=== PATIENT | male | born 1975 | race Hispanic/Latino ===

== ENCOUNTER 2020-05-19 21:30 | Inpatient (IN) | payer SELFPAY ==
[~2020-05-19] VITALS: Ht 165.1 cm; Wt 64.0 kg
--- NOTE | 2020-05-19 21:33 | NUR ---
BY EMS TO ROOM
[2020-05-19 22:12] LABS: HEMATOCRIT 28.3 % (39.0-50.0); HEMOGLOBIN 9.8 g/dl (14.0-18.0); IMMATURE GRANULOCYTES 0.8 % (0.0-5.0); MEAN CELL VOLUME 75.9 fL CALC (80.0-100.0); MEAN CORPUSCULAR HGB 26.3 pG CALC (26.0-32.0); MEAN CORPUSCULAR HGB CONC 34.6 g/dL CAL (32.0-36.0); NEUT# 7.97 thou/uL (1.82-7.42); RED BLOOD COUNT 3.73 mill/uL (4.70-6.10); RED CELL DISTRI WIDTH 13.2 % (11.5-15.5)
[2020-05-19 22:28] LABS: ALBUMIN 3.4 g/dL (3.2-5.0); ALKALINE PHOSPHATASE 204 u/l (38-126); ANION GAP 13 (6-22 (CALC)); BILIRUBIN, TOTAL 0.9 mg/dL (0.0-1.4); BUN 23 mg/dL (9-20); BUN/CREATININE RATIO 20 (12-20 (CALC)); CARBON DIOXIDE 17 mmol/l (22-30); CHLORIDE 93 mmol/l (95-108); CREATININE 1.2 mg/dL (0.7-1.3); GFR > 60 ML/MIN (>=60 (CALC)); GFR FOR AFR.AMER. > 60 ML/MIN (>=60 (CALC)); POTASSIUM 2.8 mmol/l (3.5-5.1); SGOT/AST 117 u/l (17-59); SODIUM 121 mmol/l (137-146); TOTAL PROTEIN 8.7 g/dL (6.3-8.2)
--- NOTE | 2020-05-19 22:30 | NUR ---
RESTING QUIETLY. NAD.
[2020-05-19 22:39] LABS: MYOGLOBIN 137 ng/mL (0 - 121)
--- NOTE | 2020-05-19 23:30 | NUR ---
NO CHANGE IN EXAM. APPEARS COMFORTABLE.
[2020-05-20] VITALS (13 sets, daily range): BP systolic 93–149; BP diastolic 62–98
--- NOTE | 2020-05-20 00:30 | NUR ---
RESTING QUIETLY. VSS.
--- NOTE | 2020-05-20 01:30 | NUR ---
Admission Note Report Given to: NISHA ELLIS Transported by: Wheelchair X Stretcher Transported with: X Nurse Transporter X Patent IV O2 X Primary Care Nurse Practitioner Location: ICU X MS2
--- NOTE | 2020-05-20 01:35 | NUR ---
PT RECEIVED FROM ED TO ROOM 285. ARRIVES VIA STRETCHER ACCOMPANIED BY FOREIGN PARIKH. PT TRANSFERED TO BED. GAIT UNSTEADY. PT IS HONDURAN SPEAKING. PT IS LETHARGIC. PT WAS ONLY ABLE TO ANSWER A FEW QUESTION WITH THE ED COIL MAKER. ORIENTED TO UNIT, ROOM, CALL CANCHOLA, LIGHTS, TV. ICE WATER PROVIDED. CALL CANCHOLA WITHIN REACH.
--- NOTE | 2020-05-20 03:13 | NUR ---
PT RECEIVED FROM ED TO ROOM 285. ARRIVES VIA STRETCHER ACCOMPANIED BY FOREIGN PARIKH. PT TRANSFERED TO BED. GAIT UNSTEADY. PT IS MALTESE SPEAKING. PT IS LETHARGIC. PT WAS ONLY ABLE TO ANSWER A FEW QUESTION WITH THE ED SQUARE SHEAR OPERATOR. ORIENTED TO UNIT, ROOM, CALL CANCHOLA, LIGHTS, TV. ICE WATER PROVIDED. CALL CANCHOLA WITHIN REACH.
--- NOTE | 2020-05-20 03:18 | NUR ---
PT RECEIVED FROM ED TO ROOM 285. ARRIVES VIA STRETCHER ACCOMPANIED BY FOREIGN PARIKH. PT TRANSFERED TO BED. GAIT UNSTEADY. PT IS SAUDI ARABIAN SPEAKING. PT IS LETHARGIC. PT WAS ONLY ABLE TO ANSWER A FEW QUESTION WITH THE ED TOW DRIVER. ORIENTED TO UNIT, ROOM, CALL CANCHOLA, LIGHTS, TV. ICE WATER PROVIDED. CALL CANCHOLA WITHIN REACH.
--- NOTE | 2020-05-20 04:05 | NUR ---
ER DR. MONSON CALLED AND REQUESTED STAT EKG DUE TO POSSIBLE ST ELEVATION NOTED ON LAST EKG. EKG DONE AND POSITIVE RESULTS. EKG FAXED TO DR. MONSON AND DR SHEA AND OK TO TRANSFER PT FOR POSSIBLE STEMI IN LEFT INFARCT WITH ST ELEVATION. TIPPLE MECHANIC NOTED AND STARTING PROCESS OF TRANSFER. STAT TROPONIN DRAWN AND AWAITING RESULTS.
--- NOTE | 2020-05-20 04:18 | NUR ---
DR. SHEA RETURNED CALL AND STATED TO SEND EKG RESULTS TO TRANSFER CENTER AND FOLLOW UP WITH ORNAMENTAL IRON WORKER APPRENTICE CARDIOLOGY. ALUMINUM BOAT INSPECTOR MADE CALL TO TRANSFER CENTER AT 0410 AND SPOKE WITH RICARDA AND SHE STATED SHE WILL CALL BACK WITH CONTACT NUMBERS.
--- NOTE | 2020-05-20 04:29 | NUR ---
[facility] WAS NOTIFIED AND EKG RESULTS SENT AND AWAITING RESPONSE.
--- NOTE | 2020-05-20 04:30 | NUR ---
[facility] table games dealer Dr. Fermin stated EKG changes were subtle and considering patient asymptomatic, would not recommend transfer at this time. Dr. Lassiter so notified. Orders received for repeat EKG and troponins.
--- NOTE | 2020-05-20 04:31 | NUR ---
DR. SHEA MADE AWARE OF STAT TROPONIN RESULT OF 0.012.
[2020-05-20 05:27] LABS: BUN 24 mg/dL (9-20); BUN/CREATININE RATIO 25 (12-20 (CALC)); CHLORIDE 104 mmol/l (95-108); GFR > 60 ML/MIN (>=60 (CALC)); GFR FOR AFR.AMER. > 60 ML/MIN (>=60 (CALC)); POTASSIUM 3.3 mmol/l (3.5-5.1); SODIUM 126 mmol/l (137-146)
[2020-05-20 05:28] LABS: ANION GAP 13 (6-22 (CALC)); CARBON DIOXIDE 12 mmol/l (22-30)
--- NOTE | 2020-05-20 08:00 | NUR ---
REPORT RECEIVED FROM NISHA ELLIS. PT RESTING IN BED SEMI FOWLERS WITH EYES OPEN LOOKING TO THE LEFT; DOES NOT REPLY VERBALLY TO QUESTIONS, BUT FOLLOWS COMMANDS TO LOOK AT NURSE AND OPEN MOUTH; DOES NOT MAKE EYE CONTACT. SHAKES HEAD TO YES/NO QUESTIONS. WHEN ASKED IF HE IS CHANA JENY HE SHAKES HIS HEAD YES; WHEN ASKED IF HE CAN STATE HIS NAME OR HIS BIRTHDAY HE SHAKES HIS HEAD NO; AFFEFT IS FLAT; DOES NOT FOLLOW COMMANDS TO SMILE; PERRLA. UNABLE TO LIFT ANY EXTREMITIES OFF OF THE BED, BUT DOES ATTEMPT WITH REBECCA. DENIES PAIN. RESPIRATIONS EVEN AND UNLABORED ON OXYGEN 2L VIA NC; ABDOMINAL BREATHING; LUNG SOUNDS ARE COURSE AND WHEEZING THROUGHOUT. PT ATTEMPTING TO COUGH INEFFECTIVELY; SPUTUM RETAINED IN MOUTH; PT SAT UP IN HIGH FOWLERS TO ASSIST WITH ORAL SECRETIONS AND ORAL CARE PROVIDED. PT ASKED TO SPIT OUT SECRETIONS, HOLDS MOUTH OPEN AND DOES NOT MAKE EFFORT TO SPIT. BOWEL SOUNDS ARE ACTIVE; INCONTINENT OF LARGE WATERY STOOL; OPEN AREAS ON SKIN SURROUNDING RECTUM; PHOTO OBTAINED FOR PHYSICAL CHART. NO VOID REPORTED FROM MANAGER OF SOFTWARE DEVELOPMENT AND MILD BLADDER DISTENTION NOTED; 16F LINCOLN CATHETER INSERTED AT THIS TIME WITH IMMEDIATE RETURN OF 775ML SLIGHTLY CLOUDY, YELLOW URINE. SKIN IS PALE AND CLAMMY; TEMPORAL TEMP 95.4; ACCU CHECK WNL; BP 100/74 HR 100 RR 28 SPO2 98%. IV FLUIDS INFUSING AT 125ML/HR INTO 20G IN RAC; EMS 22G TO LAC SALINE LOCKED. NO EDEMA NOTED. TELE IN PLACE. PT IN [place]/CONTACT ISOLATION ROOM DUE TO TB RULE OUT. SAFETY MEASURES IN PLACE INCLUDING BED ALARM. CALL LIGHT WITHIN REACH; NEEDS ARE ANTICIPATED BY STAFF.
--- NOTE | 2020-05-20 08:15 | NUR ---
URINE AND STOOL SAMPLE SENT TO LAB; TROPONIN DRAWN BY [facility] STAFF.
--- NOTE | 2020-05-20 08:46 | NUR ---
DR. SHEA AND RIO ALATORRE AT BEDSIDE FOR EVAL. TEMPERATURE RECHECKED RECTALLY 92.7 TWICE. PERRY HUGGER APPLIED.
[2020-05-20 08:51] LABS: URINE BILIRUBIN - DIPSTICK NEGATIVE (NEGATIVE); URINE BLOOD DIPSTICK SMALL (NEGATIVE); URINE COLOR YELLOW; URINE GLUCOSE - DIPSTICK NEGATIVE (NEGATIVE); URINE KETONE NEGATIVE (NEGATIVE); URINE LEUK ESTERASE NEGATIVE (NEGATIVE); URINE NITRITE - DIPSTICK NEGATIVE (Negative); URINE PROTEIN - DIPSTICK 100 mg/dL (NEG-TRACE); URINE SPECIFIC GRAVITY 1.025; URINE UROBILINOGEN - DIPSTICK 0.2 E.U./dL (0.2)
[2020-05-20 08:53] LABS: URINE AMORPH SEDIMENT MODERATE hpf (NONE-FER); URINE EPITHELIAL CELLS FEW EPI/hpf (0-FEW); URINE MUCUS MODERATE hpf (NONE-FEW)
--- NOTE | 2020-05-20 09:53 | NUR ---
TRANSPORTED TO RADIOLOGY FOR BRAIN CT VIA BED WITH 2 STAFF; CONDITION IS STABLE. TESTS AND PROCEDURES EXPLAINED TO PATIENT; DOES TO ACKNOWLEDGE OR REPLY. MAXIPINE AND FLAGYL INFUSING INTO BILATERAL PERIPHERAL IV SITES.
--- NOTE | 2020-05-20 10:15 | NUR ---
RETURNED TO ROOM 285 FROM RADIOLOGY. RECTAL TEMP NOW 93.4; PERRY CYGGER REAPPLIED. ACCU CHECK 122. NO CHANGES IN CONDITION AT THIS TIME.
--- NOTE | 2020-05-20 11:05 | NUR ---
TRANSPORTED TO ICU 1 VIA BED; UPDATED BESIDE REPORT GIVEN TO NISHA BOONE.
--- NOTE | 2020-05-20 11:30 | NUR ---
PT ARRIVES TO ICU-1 VIA BED FROM [facility], ACCOMPANIED BY EDITH CAMERON. PT IS AWAKE, LOOKING AROUND, BUT RESPONDS VERY SLOWLY. NO DISTRESS NOTED, PT DENIES PAIN.
--- NOTE | 2020-05-20 11:49 | NUR ---
CONSULT FOR DR GERARDO PATEL AND FOR DR EDDY.
[2020-05-20 12:51] LABS: HEMATOCRIT 23.1 % (39.0-50.0); HEMOGLOBIN 8.1 g/dl (14.0-18.0); MEAN CELL VOLUME 75.7 fL CALC (80.0-100.0); MEAN CORPUSCULAR HGB 26.6 pG CALC (26.0-32.0); MEAN CORPUSCULAR HGB CONC 35.1 g/dL CAL (32.0-36.0); NEUT# 4.5 thou/uL (1.82-7.42); RED BLOOD COUNT 3.05 mill/uL (4.70-6.10); RED CELL DISTRI WIDTH 13.3 % (11.5-15.5)
[2020-05-20 13:10] LABS: ALKALINE PHOSPHATASE 134 u/l (38-126); ANION GAP 10 (6-22 (CALC)); BILIRUBIN, TOTAL 0.7 mg/dL (0.0-1.4); BUN 24 mg/dL (9-20); BUN/CREATININE RATIO 34 (12-20 (CALC)); CARBON DIOXIDE 12 mmol/l (22-30); CHLORIDE 110 mmol/l (95-108); CREATININE 0.7 mg/dL (0.7-1.3); GFR > 60 ML/MIN (>=60 (CALC)); GFR FOR AFR.AMER. > 60 ML/MIN (>=60 (CALC)); POTASSIUM 3.3 mmol/l (3.5-5.1); SGOT/AST 86 u/l (17-59); SODIUM 129 mmol/l (137-146)
[2020-05-20 13:11] LABS: ALBUMIN 2.2 g/dL (3.2-5.0); TOTAL PROTEIN 6.1 g/dL (6.3-8.2)
--- NOTE | 2020-05-20 14:20 | NUR ---
PT HAS BEEN ABLE TO USE BSC WITH ASSIST, WATERY STOOL. PT IS ANSWERING QUESTIONS ASKED, NO DISTRESS. DR EDDY WAS CONSULTED, BELIEVES BOTTOM LINE IS PULMONARY INFECTION.
--- NOTE | 2020-05-20 16:57 | NUR ---
PT RESPONDING MORE AT THIS TIME, PER QUICKER ANSWERS TO QUESTIONS. PT NOW WITH ORAL TEMP OF 98.7 AND SHIVERRING, SO PERRY GRAY DC'Kannan AND TYLENOL REQUESTED FROM DR SHEA. PT IN NO DISTRESS HE RESTS IN THE BED.
--- NOTE | 2020-05-20 17:57 | NUR ---
PT SEEN TO HAVE ACCELERATED HR NOW, 150 RANGE. TEMP 98.7 ORAL. RIO HAYWOOD AWARE.
[2020-05-20 18:56] LABS: ANION GAP 12 (6-22 (CALC)); BUN 20 mg/dL (9-20); BUN/CREATININE RATIO 30 (12-20 (CALC)); CARBON DIOXIDE 13 mmol/l (22-30); CHLORIDE 110 mmol/l (95-108); CREATININE 0.7 mg/dL (0.7-1.3); GFR > 60 ML/MIN (>=60 (CALC)); GFR FOR AFR.AMER. > 60 ML/MIN (>=60 (CALC)); POTASSIUM 3.3 mmol/l (3.5-5.1); SODIUM 131 mmol/l (137-146)
--- NOTE | 2020-05-20 19:18 | NUR ---
PATIENT IS AWAKE, ORIENTED TO NAME, CURRENT MONTH AND YEAR. ANSWERS QUESTIONS APPROPRIATELY AT TIMES, IS CONFUSED AT TIMES. PLACED ON 2 L/MIN NC FOR O2 SUPPORT, RESP RATE 26-28, O2 SATS 94%-96%. TACHYCARDIC AT 120'S-130'S. FINISH MIXER REPORTED HIGH FEVER 103.8 TEMPORAL, PLACED ICE PACKS ON EACH UNDERARM AND GROIN. CHECKED ORAL TEMP AND RECHECKED TEMPORAL. BP WNL. LINCOLN CATHETER INTACT, WAS EDUCATED ABOUT IT. IV X2 INTACT, NS AT 125 ML/HR. HAS SLIGHT TREMORS WHEN ARMS EXTENDED. REPORTS HE QUIT DRINKING 1 MONTHJ AGO. REPORTS HE IS FROM [place]. NURSE ASSESSMENT PERFORMED. DOES FOLLOW DIRECTIONS, IS ABLE TO DRINK AND HOLD HIS CUP WITHOUT DIFFICULTY. NO COUGH NOTED AT THIS TIME. NOTED TO HAVE A YELLOW/THICK SPUTUM IN EMESIS BAG. CALL LIGHT WITHIN REACH, TV TURNED ON. WILL CONTINUE TO MONITOR.
--- NOTE | 2020-05-20 19:24 | NUR ---
BLEACH MIXER IN ROOM.
[2020-05-20 19:44] LABS: HEMATOCRIT 25.9 % (39.0-50.0); HEMOGLOBIN 9.1 g/dl (14.0-18.0); IMMATURE GRANULOCYTES 0.8 % (0.0-5.0); MEAN CELL VOLUME 77.3 fL CALC (80.0-100.0); MEAN CORPUSCULAR HGB 27.2 pG CALC (26.0-32.0); MEAN CORPUSCULAR HGB CONC 35.1 g/dL CAL (32.0-36.0); NEUT# 7.83 thou/uL (1.82-7.42); RED BLOOD COUNT 3.35 mill/uL (4.70-6.10); RED CELL DISTRI WIDTH 13.6 % (11.5-15.5)
--- NOTE | 2020-05-20 20:40 | NUR ---
PATIENT TEMP 99.8 DEGREES F TEMPORAL. HR 118 BPM-120'S. PATIENT HAS NO COMPLAINTS OF PAIN OR OTHER NEEDS AT THIS TIME.
--- NOTE | 2020-05-20 21:57 | NUR ---
PATIENT IS AWAKE, ABLE TO PULL HIMSLEF UP WITH VERBAL CUEING. TEMP NOW 100.9 ORALLY. DOES SHIVER FROM BEING COLD, LIGHT SHEET PLACED. HR UP TO 130'S NOW. BP 149/98 MMHG. WILL CONTINUE TO MONITOR.
--- NOTE | 2020-05-20 22:32 | NUR ---
CALLED AND SPOKE TO DR SHEA TO NOTIFY PATIENT'S HR 130'S-140'S, CONTINUES TO HAVE FEVER, SLIGHT TREMORS, NEW ORDERS RECEIVED.
--- NOTE | 2020-05-20 23:28 | NUR ---
MOTRIN AND ATIVAN PROVIDED. BARON-CARE PROVIDED DUE TO PATIENT HAD INCONTINENT BM, WATERY/LOOSE/YELLOW-BROWN. EMPTIED 950 OF URINE FROM LINCOLN: DARK YELLOW. HR REMAINS 130'S. FEVER 100.2 DEGREES F. WILL CONTINUE TO MONITOR, BED ALARM ON, DOES NOT ATTEMPT TO GET OUT OF BED.
[2020-05-21] VITALS (24 sets, daily range): BP systolic 85–130; BP diastolic 55–92
--- NOTE | 2020-05-21 | NUR ---
FIBERGLASS ROLLER IN ROOM TO DRAW BLOOD FOR CBC ORDERED BY DR SHEA.
[2020-05-21 00:07] LABS: HEMATOCRIT 26.4 % (39.0-50.0); HEMOGLOBIN 9.1 g/dl (14.0-18.0); MEAN CELL VOLUME 76.5 fL CALC (80.0-100.0); MEAN CORPUSCULAR HGB 26.4 pG CALC (26.0-32.0); MEAN CORPUSCULAR HGB CONC 34.5 g/dL CAL (32.0-36.0); RED BLOOD COUNT 3.45 mill/uL (4.70-6.10); RED CELL DISTRI WIDTH 13.6 % (11.5-15.5)
--- NOTE | 2020-05-21 00:47 | NUR ---
PATIENT RESTS WITH EYES CLOSED. HR DOWN TO 115 BPM. NO ACUTE DISTRESS SHOWN. CALL LIGHT WITHIN RECH.
--- NOTE | 2020-05-21 02:09 | NUR ---
PATIENT'S BP READING LOW, BP CUFF READJUSTED, BP NOW 98/62 MMHG. TEMP 99.0 DEGREES F. PATIENT SWEATY. IS DROWSY. DENIES PAIN. [facility] EMS REMOVED.
--- NOTE | 2020-05-21 04:12 | NUR ---
PATIENT RESTS WITH EYES CLOSED. AFEBRILE. HR 70'S, SR. BP LOW AT 91/61 MMHG. O2 SAT 96% ON 2 L/MIN NC, RESP RATE 22. CALL LIGHT WITHIN REACH.
[2020-05-21 05:45] LABS: ALBUMIN 1.9 g/dL (3.2-5.0); ALKALINE PHOSPHATASE 192 u/l (38-126); ANION GAP 11 (6-22 (CALC)); BILIRUBIN, TOTAL 0.7 mg/dL (0.0-1.4); BUN 17 mg/dL (9-20); BUN/CREATININE RATIO 25 (12-20 (CALC)); CARBON DIOXIDE 12 mmol/l (22-30); CHLORIDE 109 mmol/l (95-108); CREATININE 0.7 mg/dL (0.7-1.3); GFR > 60 ML/MIN (>=60 (CALC)); GFR FOR AFR.AMER. > 60 ML/MIN (>=60 (CALC)); POTASSIUM 3.1 mmol/l (3.5-5.1); SGOT/AST 77 u/l (17-59); SODIUM 129 mmol/l (137-146); TOTAL PROTEIN 5.5 g/dL (6.3-8.2)
--- NOTE | 2020-05-21 05:52 | NUR ---
PATIENT AWAKENS WITH PAINFUL STIMULI, IS ABLE TO FOLLOW DIRECTIONS WITH VERBAL CUEING, IS ABLE TO PULL HIMSELF UP. HAD A LARGE LOOSE/WATERY INCONTINENT STOOL. PERICARE PROVIDED. BED LINENS CHANGED. TEMP 96.6 DEGREES F, WARM BLANKET PROVIDED, NO COMPLAINTS.
--- NOTE | 2020-05-21 07:59 | NUR ---
PT AT REST IN THE BED, EYES CLOSED. NO FEVER, NO SHAKINESS NOTED.
--- NOTE | 2020-05-21 11:49 | NUR ---
PT AWAKE AND FEEDING HIMSELF AT THIS TIME. NO COMPLAINTS, NO SHAKINESS, NO FEVER AT THIS TIME.
--- NOTE | 2020-05-21 15:26 | NUR ---
PT TESTED FOR HIV, NOW AWARE THAT HE IS POSITIVE. PT DID USE BSC, SMALL LOOSE STOOL, ASSISTED BACK INTO BED. NO ACUTE DISTRESS. DR CARRILLO CONSULT DONE.
--- NOTE | 2020-05-21 15:57 | NUR ---
PT REMAINS AT REST IN THE BED, NO DISTRESS ORDERED. NEW IV PLACED AFTER CURRENT ONE CLOGGED OFF. PT REMAINS SLOW TO SPEAK, IMPROVED FROM YESTERDAY.
--- NOTE | 2020-05-21 19:15 | NUR ---
REPORT RECEIVED, PATIENT SUPINE IN BED WITH HOB 30-45 DEG, AFEBRILE AT THIS TIME. ST ON MONITOR. CHEST X-RAY IN PROGRESS.
--- NOTE | 2020-05-21 23:50 | NUR ---
PT REPOSITIONED IN BED, BREATHING IS LABORED, EXP. WHEEZE AUDIBLE RR 37, TACHYCARDIC AT 135, WITH FEVER OF 102.2. MOTRIN ADMINISTERED, COOL CLOTHES PROVIDED AROUND NAPE OF NECK. ATIVAN PRN GIVEN FOR ANXIETY.
[2020-05-22] VITALS (14 sets, daily range): BP systolic 86–119; BP diastolic 57–77
--- NOTE | 2020-05-22 00:15 | NUR ---
PT DESAT TO 81% ENTERED ROOM, PT HAD TAKEN OFF CANULA. TEMP DOWN TO 100.9 AT THIS TIME. WHILE IN PT ROOM, PT WAS INCONTINENT OF STOOL. PT TRANSFERRED TO BSC AND CAUSING HR TO SPIKE TO 165, RR LABORED AND SATS DROPPING. CALLED FOR RT TO EVAL PT AND PROVIDE HIGH FLOW NC. BED CHANGED, PT CLEANED AND SETTLED, BP STABLE. HR 137 PRIOR TO EXITING ROOM.
[2020-05-22 00:30] LABS: HEMATOCRIT 26.8 % (39.0-50.0); HEMOGLOBIN 9.2 g/dl (14.0-18.0); MEAN CELL VOLUME 76.6 fL CALC (80.0-100.0); MEAN CORPUSCULAR HGB 26.3 pG CALC (26.0-32.0); MEAN CORPUSCULAR HGB CONC 34.3 g/dL CAL (32.0-36.0); RED BLOOD COUNT 3.5 mill/uL (4.70-6.10); RED CELL DISTRI WIDTH 13.7 % (11.5-15.5)
--- NOTE | 2020-05-22 01:31 | NUR ---
PT OBSERVED RESTING W/HOB ELEVATED DISTRESS NOT OBSERVED. VSS, HR 124 WITH 02 AT 92% ON 8L HIGH FLOW AT THIS TIME. PT HAD BM WHICH WAS LOOSE, BROWN WITH SMALL AMOUNT OF BRIGHT RED BLOOD.
--- NOTE | 2020-05-22 05:20 | NUR ---
PT RESTING QUIETLY, VSS, NO S/S OF SOB/RESP DISTRESS. HR 86 ON MONITOR.
[2020-05-22 06:01] LABS: ALBUMIN 1.8 g/dL (3.2-5.0); ALKALINE PHOSPHATASE 268 u/l (38-126); ANION GAP 11 (6-22 (CALC)); BILIRUBIN, TOTAL 0.7 mg/dL (0.0-1.4); BUN 17 mg/dL (9-20); BUN/CREATININE RATIO 26 (12-20 (CALC)); CARBON DIOXIDE 13 mmol/l (22-30); CHLORIDE 110 mmol/l (95-108); CREATININE 0.6 mg/dL (0.7-1.3); GFR > 60 ML/MIN (>=60 (CALC)); GFR FOR AFR.AMER. > 60 ML/MIN (>=60 (CALC)); POTASSIUM 3.1 mmol/l (3.5-5.1); SGOT/AST 71 u/l (17-59); SODIUM 131 mmol/l (137-146); TOTAL PROTEIN 5.2 g/dL (6.3-8.2)
--- NOTE | 2020-05-22 07:48 | NUR ---
PATIENT ASLEEP AND VITALS ARE STABLE
--- NOTE | 2020-05-22 09:43 | NUR ---
DR PATTON ORDERED SODIUM BICARB DRIP. PATIENT ATE 80% OF BREAKFAST
--- NOTE | 2020-05-22 16:00 | NUR ---
PATIENT IS RESTING COMFORTABLY. NO COMPLAINTS OR CONCCERNS AT THIS TIME
--- NOTE | 2020-05-22 19:30 | NUR ---
REPORT GIVEN BY EDITH. PATIENT IS IN BED WATCHING TV. RESP EVEN AND UNLABORED. NO S/S OF DISTRESS NOTED. FAL AND SAFTEY PRECAUTIONS IN PLACE. pATIENT CHINESE PEAKING ONLY, JERICA STAFF TOXICOLOGIST AT BEDSIDE TRANSLATING. IV INFUSING BICARB IN 20RUA. FALL AND SAFTEY PRECAUTIONS IN PLACE. 2L VIA NC IN PLACE. PATIENT INFORMED TO CALL WITH ANY QUESTIONS OR CONCERNS.
--- NOTE | 2020-05-22 22:00 | NUR ---
pATIENT RESTING WIHT EYES CLOSED WITH BLANKET PULLED OVER HEAD. FALL AND SAFTEY PRECAUTIONS.
[2020-05-23] VITALS (11 sets, daily range): BP systolic 98–140; BP diastolic 73–87
--- NOTE | 2020-05-23 | NUR ---
PATIENT RESTING WITH EYES CLOSED. NO S/S OF DISTRESS NOTED.
--- NOTE | 2020-05-23 02:00 | NUR ---
PATIENT RESTING WITH EYES CLOSED. FALL AND SAFTEY PRECAUTIONS IN PLACE. NO S/S OF DISTRESS NOTED.
--- NOTE | 2020-05-23 04:36 | NUR ---
DOCUMENTATION CLERK UNABLE TO DRAW BLOOD ON PATIENT
--- NOTE | 2020-05-23 07:40 | NUR ---
pt awake in bed; appears ill; assessment completed at this time; Kannan Boyer RN present at bedside to interpret; pt alert to person, unable to state date of ; answers to questions very vague; offers no complaints of pain; no n/v noted; resp even and unlabored; lungs clear/ diminished bases; skin color wnl; o2 per nc at 2L; fnp dry cough noted; hr reg; strong pulses; no edema noted; st on monitor; abd soft with bs present; no bm noted per automatic typewriter inspector; macdonald to gravity draining cloudy/ sediment gómez urine; #20 patent to jermaine with ivf infusing without complication; no redness or edema noted at site; plan of care/ meds explained; medicated with tylenol for temp of 102.1; call light within reach; will continue to monitor
--- NOTE | 2020-05-23 08:00 | NUR ---
awake in bed; resp slightly labored; o2 per nc; st on monitor; poor po intake; generalized weakness; call light within reach; will continue to monitor
[2020-05-23 08:58] LABS: HEMATOCRIT 25.4 % (39.0-50.0); HEMOGLOBIN 8.6 g/dl (14.0-18.0); IMMATURE GRANULOCYTES 0.7 % (0.0-5.0); MEAN CELL VOLUME 76.3 fL CALC (80.0-100.0); MEAN CORPUSCULAR HGB 25.8 pG CALC (26.0-32.0); MEAN CORPUSCULAR HGB CONC 33.9 g/dL CAL (32.0-36.0); NEUT# 4.73 thou/uL (1.82-7.42); RED BLOOD COUNT 3.33 mill/uL (4.70-6.10); RED CELL DISTRI WIDTH 13.9 % (11.5-15.5)
--- NOTE | 2020-05-23 09:00 | NUR ---
Dr Lassiter present at bedside to assess pt and discuss plan of care
[2020-05-23 09:15] LABS: ALBUMIN 1.9 g/dL (3.2-5.0); ALKALINE PHOSPHATASE 295 u/l (38-126); ANION GAP 9 (6-22 (CALC)); BILIRUBIN, TOTAL 0.8 mg/dL (0.0-1.4); BUN 15 mg/dL (9-20); BUN/CREATININE RATIO 28 (12-20 (CALC)); CHLORIDE 111 mmol/l (95-108); CREATININE 0.6 mg/dL (0.7-1.3); GFR > 60 ML/MIN (>=60 (CALC)); GFR FOR AFR.AMER. > 60 ML/MIN (>=60 (CALC)); POTASSIUM 3.1 mmol/l (3.5-5.1); SGOT/AST 80 u/l (17-59); SODIUM 134 mmol/l (137-146); TOTAL PROTEIN 5.5 g/dL (6.3-8.2)
[2020-05-23 09:16] LABS: CARBON DIOXIDE 17 mmol/l (22-30)
--- NOTE | 2020-05-23 09:53 | NUR ---
FACESHEET FAXED TO [facility]
--- NOTE | 2020-05-23 10:06 | NUR ---
[facility] transfer center [place] called per script writer; information provided; awaiting return call
--- NOTE | 2020-05-23 10:13 | NUR ---
awake in bed; o2 per nc; iv intact and patent; st on monitor; macdonald to gravity; resp tachypneic; call light within reach; will continue to monitor
--- NOTE | 2020-05-23 11:00 | NUR ---
at bedside for Dr Hilliard consult with telehealth; recommendations to be placed
--- NOTE | 2020-05-23 11:17 | NUR ---
pt cleansed for lg loose brown bm; pericare per staff; photo attempted but pt pushing back againt staff; repositioned; will continue to monitor
--- NOTE | 2020-05-23 11:23 | NUR ---
PT mote Patient is seen in Am but only briefly as he was incontinent of stool. His HR was 120 adn RR was 30 at rest. His am pac score is unchanged but we will be back in PM for a more thorough treatment as he is working with nursing
--- NOTE | 2020-05-23 12:03 | NUR ---
awake in bed eating lunch; no apparent distress noted; o2 per nc; iv intact and patent; macdonald to gravity; st on monitor; call light within reach; will continue to monitor
--- NOTE | 2020-05-23 14:03 | NUR ---
awake; meds administered without complication; tolerated po well; iv intact and patent; no redness or edema noted at site; st on monitor; o2 per nc; macdonald to gravity; call light within reach; will continue to monitor
--- NOTE | 2020-05-23 16:06 | NUR ---
resting in bed; resp 26/ slightly labored; o2 per nc; iv intact and patent; no redness or edema noted at site; st on monitor; macdonald to gravity; pt repositions self; brief cdi; call light within reach; will continue to monitor
--- NOTE | 2020-05-23 16:52 | NUR ---
call received from [facility] transfer center; pt to transfer to resp unit room 1097; report to be called to [phone]
--- NOTE | 2020-05-23 17:09 | NUR ---
Mitch Gregory CNA for interpretation; verbal consent obtained per this content writer and Kannan Boyer RN for transfer [facility]
--- NOTE | 2020-05-23 17:11 | NUR ---
[facility] called; informed provided; ETA 2+ hours;
--- NOTE | 2020-05-23 17:40 | NUR ---
pt awake in bed; pt removing cardiac/blood pressure cuff/gown; in to assess pt; pt noted with audible wheezing; resp rate 28/ slightly labored; o2 sat 87%; o2 titrated to 10L hi flow; pericare for lg loose bm; excoriation noted to scrotum; repositioned; will continue to monitor closely
--- NOTE | 2020-05-23 17:54 | NUR ---
Dr Lassiter called per poem writer; informed of wheezing, o2 sat 90 with now 10L NC, tachycardia, u/o of 1750cc following lasix; orders received and on chart
--- NOTE | 2020-05-23 18:01 | NUR ---
[facility] called per junior copywriter; informed of ETA; report to be called on second shift per [facility] d/t ETA of transport
--- NOTE | 2020-05-23 18:07 | NUR ---
awake in bed eating dinner; o2 per nc; o2 sat 90-91%; macdonald to gravity; iv intact and patent; st on monitor; call light within reach
--- NOTE | 2020-05-23 20:00 | NUR ---
REPORT GIVEN BY DANIELE. PATIENT IN BED, LETHARGIC AND DECONDITIONED. RESP EVEN AND LABORED, 10L [place] NC. FALL AND SAFTEY PRECATUIONS IN PLACE. IV INFUSING KVO FLUIDS. LINCOLN DRAINING CLEAR, SVITLANA URINE. ST ON TELE. WAITING ON [facility] FOR TRANSPORT.
--- NOTE | 2020-05-23 21:18 | NUR ---
[facility] HERE FOR TRANSPORT. PATIENT LEFT AT 2109. REPORT CALLED TO [facility] AT 2114.
--- NOTE | 2020-05-23 21:26 | NUR ---
REPORT GIVEN TO MAYA AT [facility], UNIT 10W
== END 2020-05-23 21:15 | disposition short-term general hospital (02) | DRG 975 ==
LOC: ED 21:30 → ED-I 05-20 00:48 → ED 05-20 01:03 → MS2 05-20 01:04 → ICU 05-20 11:00
PROVIDERS: Emergency Medicine; Nurse Practitioner; ADMIT Internal Medicine; ATTEND Internal Medicine
PROC: 0T9B70Z Drainage of Bladder with Drainage Device, Via Natural or Artificial Opening (ICD-10-PCS; principal; 2020-05-20)
PROC: 5A09357 Assistance with Respiratory Ventilation, Less than 24 Consecutive Hours, Continuous Positive Airway Pressure (ICD-10-PCS; 2020-05-22)
DX: A41.9 Sepsis, unspecified organism (principal); E87.1 Hypo-osmolality and hyponatremia; B20 Human immunodeficiency virus [HIV] disease; G93.41 Metabolic encephalopathy; J18.9 Pneumonia, unspecified organism; E87.2 Acidosis; A15.0 Tuberculosis of lung; R65.20 Severe sepsis without septic shock; I50.9 Heart failure, unspecified; E87.6 Hypokalemia; R74.01 Elevation of levels of liver transaminase levels; Z88.0 Allergy status to penicillin; Z87.891 Personal history of nicotine dependence; Z20.822 Contact with and (suspected) exposure to COVID-19
CPT/HCPCS: J0692; J2060; J3475; Q9967; S0073

== ENCOUNTER 2020-06-05 18:46 | Inpatient (IN) | payer SELFPAY ==
[~2020-06-05] VITALS: Ht 172.7 cm; Wt 49.0 kg
[2020-06-05 19:00] VITALS: BP 99/64
[2020-06-06 00:30] VITALS: BP 97/66
[2020-06-06 04:20] VITALS: BP 100/65
[2020-06-06 05:33] LABS: HEMOGLOBIN 8.3 g/dl (14.0-18.0); IMMATURE GRANULOCYTES 0.7 % (0.0-5.0); MEAN CORPUSCULAR HGB 26.3 pG CALC (26.0-32.0); MEAN CORPUSCULAR HGB CONC 31.9 g/dL CAL (32.0-36.0); NEUT# 1.9 thou/uL (1.82-7.42); RED BLOOD COUNT 3.15 mill/uL (4.70-6.10); RED CELL DISTRI WIDTH 17.6 % (11.5-15.5)
[2020-06-06 05:38] LABS: MEAN CELL VOLUME 82.5 fL CALC (80.0-100.0)
[2020-06-06 05:41] LABS: ALKALINE PHOSPHATASE 232 u/l (38-126); BILIRUBIN, TOTAL 0.6 mg/dL (0.0-1.4); BUN 17 mg/dL (9-20); BUN/CREATININE RATIO 33 (12-20 (CALC)); CARBON DIOXIDE 20 mmol/l (22-30); CHLORIDE 101 mmol/l (95-108); CREATININE 0.5 mg/dL (0.7-1.3); GFR > 60 ML/MIN (>=60 (CALC)); GFR FOR AFR.AMER. > 60 ML/MIN (>=60 (CALC)); SGOT/AST 39 u/l (17-59); SODIUM 128 mmol/l (137-146)
[2020-06-06 05:46] LABS: ANION GAP 11 (6-22 (CALC)); POTASSIUM 4.4 mmol/l (3.5-5.1)
[2020-06-06 05:47] LABS: TOTAL PROTEIN 7.8 g/dL (6.3-8.2)
[2020-06-06 08:00] VITALS: BP 103/68
[2020-06-06 11:24] VITALS: BP 108/65
[2020-06-06 15:52] VITALS: BP 105/66
[2020-06-06 21:22] VITALS: BP 101/60
[2020-06-07] VITALS (7 sets, daily range): BP systolic 92–106; BP diastolic 60–65
[2020-06-07 06:22] LABS: HEMOGLOBIN 8.8 g/dl (14.0-18.0); MEAN CELL VOLUME 84.1 fL CALC (80.0-100.0); MEAN CORPUSCULAR HGB 27.4 pG CALC (26.0-32.0); MEAN CORPUSCULAR HGB CONC 32.6 g/dL CAL (32.0-36.0); RED BLOOD COUNT 3.21 mill/uL (4.70-6.10); RED CELL DISTRI WIDTH 17.5 % (11.5-15.5)
[2020-06-07 06:33] LABS: ANION GAP 12 (6-22 (CALC)); BUN 25 mg/dL (9-20); BUN/CREATININE RATIO 38 (12-20 (CALC)); CARBON DIOXIDE 20 mmol/l (22-30); CHLORIDE 100 mmol/l (95-108); CREATININE 0.7 mg/dL (0.7-1.3); GFR > 60 ML/MIN (>=60 (CALC)); GFR FOR AFR.AMER. > 60 ML/MIN (>=60 (CALC)); MAGNESIUM 1.6 mg/dL (1.6-2.3); POTASSIUM 4.4 mmol/l (3.5-5.1); SODIUM 128 mmol/l (137-146)
[2020-06-08 04:00] VITALS: BP 109/73
[2020-06-08 06:04] LABS: HEMATOCRIT 28.8 % (39.0-50.0); IMMATURE GRANULOCYTES 1.1 % (0.0-5.0); MEAN CELL VOLUME 81.8 fL CALC (80.0-100.0); MEAN CORPUSCULAR HGB 25.6 pG CALC (26.0-32.0); MEAN CORPUSCULAR HGB CONC 31.3 g/dL CAL (32.0-36.0); NEUT# 2.59 thou/uL (1.82-7.42); RED BLOOD COUNT 3.52 mill/uL (4.70-6.10); RED CELL DISTRI WIDTH 17.8 % (11.5-15.5)
[2020-06-08 06:30] LABS: ANION GAP 13 (6-22 (CALC)); BUN 24 mg/dL (9-20); BUN/CREATININE RATIO 36 (12-20 (CALC)); CARBON DIOXIDE 22 mmol/l (22-30); CHLORIDE 97 mmol/l (95-108); CREATININE 0.7 mg/dL (0.7-1.3); GFR > 60 ML/MIN (>=60 (CALC)); GFR FOR AFR.AMER. > 60 ML/MIN (>=60 (CALC)); POTASSIUM 4.1 mmol/l (3.5-5.1); SODIUM 128 mmol/l (137-146)
[2020-06-08 08:00] VITALS: BP 102/66
[2020-06-08 11:12] VITALS: BP 110/74
[2020-06-08 14:45] VITALS: BP 101/74
[2020-06-08 19:50] VITALS: BP 101/67
[2020-06-09] VITALS (7 sets, daily range): BP systolic 94–122; BP diastolic 60–82
[2020-06-09 05:40] LABS: HEMATOCRIT 25.7 % (39.0-50.0); HEMOGLOBIN 8.5 g/dl (14.0-18.0); MEAN CELL VOLUME 84.5 fL CALC (80.0-100.0); MEAN CORPUSCULAR HGB CONC 33.1 g/dL CAL (32.0-36.0); RED BLOOD COUNT 3.04 mill/uL (4.70-6.10); RED CELL DISTRI WIDTH 17.9 % (11.5-15.5)
[2020-06-09 06:00] LABS: ANION GAP 18 (6-22 (CALC)); BUN 24 mg/dL (9-20); BUN/CREATININE RATIO 35 (12-20 (CALC)); CARBON DIOXIDE 19 mmol/l (22-30); CHLORIDE 96 mmol/l (95-108); CREATININE 0.7 mg/dL (0.7-1.3); GFR > 60 ML/MIN (>=60 (CALC)); GFR FOR AFR.AMER. > 60 ML/MIN (>=60 (CALC)); POTASSIUM 4.8 mmol/l (3.5-5.1); SODIUM 128 mmol/l (137-146)
[2020-06-10] VITALS (7 sets, daily range): BP systolic 102–152; BP diastolic 61–78
[2020-06-10 05:36] LABS: HEMATOCRIT 24.6 % (39.0-50.0); HEMOGLOBIN 8.6 g/dl (14.0-18.0); MEAN CORPUSCULAR HGB 29.4 pG CALC (26.0-32.0); RED BLOOD COUNT 2.93 mill/uL (4.70-6.10); RED CELL DISTRI WIDTH 18.1 % (11.5-15.5)
[2020-06-10 05:49] LABS: ALBUMIN 3.2 g/dL (3.2-5.0); BUN 17 mg/dL (9-20); CARBON DIOXIDE 19 mmol/l (22-30); CHLORIDE 102 mmol/l (95-108); CREATININE 0.6 mg/dL (0.7-1.3); GFR > 60 ML/MIN (>=60 (CALC)); GFR FOR AFR.AMER. > 60 ML/MIN (>=60 (CALC)); POTASSIUM 4.6 mmol/l (3.5-5.1); SODIUM 129 mmol/l (137-146)
[2020-06-11] VITALS (9 sets, daily range): BP systolic 89–116; BP diastolic 50–70
[2020-06-11 04:52] LABS: ANION GAP 11 (6-22 (CALC)); BUN 23 mg/dL (9-20); BUN/CREATININE RATIO 39 (12-20 (CALC)); CARBON DIOXIDE 19 mmol/l (22-30); CHLORIDE 102 mmol/l (95-108); CREATININE 0.6 mg/dL (0.7-1.3); GFR > 60 ML/MIN (>=60 (CALC)); GFR FOR AFR.AMER. > 60 ML/MIN (>=60 (CALC)); POTASSIUM 3.9 mmol/l (3.5-5.1); SODIUM 128 mmol/l (137-146)
[2020-06-12] VITALS (8 sets, daily range): BP systolic 102–167; BP diastolic 65–87
[2020-06-12 06:20] LABS: ANION GAP 11 (6-22 (CALC)); BUN 18 mg/dL (9-20); BUN/CREATININE RATIO 35 (12-20 (CALC)); CARBON DIOXIDE 19 mmol/l (22-30); CHLORIDE 102 mmol/l (95-108); CREATININE 0.5 mg/dL (0.7-1.3); GFR > 60 ML/MIN (>=60 (CALC)); GFR FOR AFR.AMER. > 60 ML/MIN (>=60 (CALC)); POTASSIUM 4.2 mmol/l (3.5-5.1); SODIUM 127 mmol/l (137-146)
[2020-06-13 00:05] VITALS: BP 101/65
[2020-06-13 03:30] VITALS: BP 95/61
[2020-06-13 05:52] LABS: ANION GAP 12 (6-22 (CALC)); BUN 21 mg/dL (9-20); BUN/CREATININE RATIO 36 (12-20 (CALC)); CARBON DIOXIDE 19 mmol/l (22-30); CHLORIDE 100 mmol/l (95-108); CREATININE 0.6 mg/dL (0.7-1.3); GFR > 60 ML/MIN (>=60 (CALC)); GFR FOR AFR.AMER. > 60 ML/MIN (>=60 (CALC)); SODIUM 127 mmol/l (137-146)
[2020-06-13 07:30] VITALS: BP 97/71
[2020-06-13 10:50] VITALS: BP 107/70
[2020-06-13] MEDS ORDERED: URE-NA15 GM PO (12:23)
[2020-06-13] MEDS ORDERED: BACTRIM DS1 TAB PO (12:23)
[2020-06-13] MEDS ORDERED: INH300 MG PO (12:23)
[2020-06-13] MEDS ORDERED: SOD CHLORIDE1 GM PO (12:23)
[2020-06-13] MEDS ORDERED: ETHAMBUTOL HYD400 MG PO (12:23)
[2020-06-13] MEDS ORDERED: LEVOTHYROXIN25 MC1 PO (12:23)
[2020-06-13] MEDS ORDERED: RIFAMPIN300 MG PO (12:23)
[2020-06-13] MEDS ORDERED: PYRIDOXINE25 MG PO (12:23)
[2020-06-13] MEDS ORDERED: ACYCLOVIR400 MG PO (12:41)
[2020-06-13 14:50] VITALS: BP 96/64
[2020-06-13 19:45] VITALS: BP 94/60
[2020-06-14 00:27] VITALS: BP 102/66
[2020-06-14 03:30] VITALS: BP 92/58
[2020-06-14 06:32] LABS: HEMATOCRIT 24.8 % (39.0-50.0); HEMOGLOBIN 8.1 g/dl (14.0-18.0); MEAN CELL VOLUME 83.5 fL CALC (80.0-100.0); MEAN CORPUSCULAR HGB 27.3 pG CALC (26.0-32.0); MEAN CORPUSCULAR HGB CONC 32.7 g/dL CAL (32.0-36.0); RED BLOOD COUNT 2.97 mill/uL (4.70-6.10); RED CELL DISTRI WIDTH 19.7 % (11.5-15.5)
[2020-06-14 06:56] LABS: ANION GAP 12 (6-22 (CALC)); BUN 20 mg/dL (9-20); BUN/CREATININE RATIO 41 (12-20 (CALC)); CARBON DIOXIDE 19 mmol/l (22-30); CHLORIDE 100 mmol/l (95-108); CREATININE 0.5 mg/dL (0.7-1.3); GFR > 60 ML/MIN (>=60 (CALC)); GFR FOR AFR.AMER. > 60 ML/MIN (>=60 (CALC)); MAGNESIUM 1.4 mg/dL (1.6-2.3); POTASSIUM 4.3 mmol/l (3.5-5.1); SODIUM 127 mmol/l (137-146)
[2020-06-14 07:05] VITALS: BP 156/88
[2020-06-14 10:26] VITALS: BP 104/67
[2020-06-14 14:20] VITALS: BP 102/64
[2020-06-14 20:26] VITALS: BP 101/66
[2020-06-15 00:05] VITALS: BP 98/63
[2020-06-15 04:00] VITALS: BP 102/66
[2020-06-15 05:39] LABS: HEMATOCRIT 24.5 % (39.0-50.0); HEMOGLOBIN 8.1 g/dl (14.0-18.0); MEAN CELL VOLUME 84.5 fL CALC (80.0-100.0); MEAN CORPUSCULAR HGB 27.9 pG CALC (26.0-32.0); MEAN CORPUSCULAR HGB CONC 33.1 g/dL CAL (32.0-36.0); NEUT# 1.88 thou/uL (1.82-7.42); RED BLOOD COUNT 2.9 mill/uL (4.70-6.10); RED CELL DISTRI WIDTH 20.3 % (11.5-15.5)
[2020-06-15 06:08] LABS: ALBUMIN 3.2 g/dL (3.2-5.0); ALKALINE PHOSPHATASE 239 u/l (38-126); ANION GAP 12 (6-22 (CALC)); BILIRUBIN, TOTAL 0.5 mg/dL (0.0-1.4); BUN 26 mg/dL (9-20); BUN/CREATININE RATIO 48 (12-20 (CALC)); CARBON DIOXIDE 21 mmol/l (22-30); CHLORIDE 103 mmol/l (95-108); CREATININE 0.5 mg/dL (0.7-1.3); GFR > 60 ML/MIN (>=60 (CALC)); GFR FOR AFR.AMER. > 60 ML/MIN (>=60 (CALC)); POTASSIUM 4.3 mmol/l (3.5-5.1); SGOT/AST 34 u/l (17-59); SODIUM 131 mmol/l (137-146); TOTAL PROTEIN 8.1 g/dL (6.3-8.2)
[2020-06-15 07:30] VITALS: BP 108/68
[2020-06-15 10:59] VITALS: BP 107/75
[2020-06-15 15:36] VITALS: BP 100/65
[2020-06-15 19:50] VITALS: BP 104/66
[2020-06-16] VITALS: BP 144/74
[2020-06-16 04:00] VITALS: BP 108/69
[2020-06-16 07:54] VITALS: BP 99/64
[2020-06-16 09:19] LABS: ANION GAP 13 (6-22 (CALC)); BUN 20 mg/dL (9-20); BUN/CREATININE RATIO 43 (12-20 (CALC)); CARBON DIOXIDE 18 mmol/l (22-30); CHLORIDE 102 mmol/l (95-108); CREATININE 0.5 mg/dL (0.7-1.3); GFR > 60 ML/MIN (>=60 (CALC)); GFR FOR AFR.AMER. > 60 ML/MIN (>=60 (CALC)); SODIUM 129 mmol/l (137-146)
[2020-06-16 10:30] VITALS: BP 104/70
== END 2020-06-16 15:48 | disposition home or self-care (01) | DRG 975 ==
LOC: MS2 18:46
PROVIDERS: Internal Medicine; Internal Medicine Nephrology; Nurse Practitioner; Nurse Practitioner Family; ADMIT Internal Medicine; ATTEND Internal Medicine
DX: B20 Human immunodeficiency virus [HIV] disease (principal); B59 Pneumocystosis; R64 Cachexia; A15.0 Tuberculosis of lung; E22.2 Syndrome of inappropriate secretion of antidiuretic hormone; E87.2 Acidosis; K62.6 Ulcer of anus and rectum; D64.9 Anemia, unspecified; M62.50 Muscle wasting and atrophy, not elsewhere classified, unspecified site; R13.10 Dysphagia, unspecified; K62.89 Other specified diseases of anus and rectum; E88.09 Other disorders of plasma-protein metabolism, not elsewhere classified; E03.9 Hypothyroidism, unspecified; E83.42 Hypomagnesemia; Z59.0 Homelessness
CPT/HCPCS: J1650; J3475